=== PATIENT | male | born 1965 | race Caucasian/White ===

== ENCOUNTER 2017-01-06 13:07 | Emergency (ER) | payer SELFPAY ==
--- NOTE | ~2017-01-06 | EKG ---
PATIENT: VIVIANA RAMOS UNIT #: [id number] Ventricular Rate: 81 BPM Atrial Rate: 81 BPM P-R Interval: 156 ms QRS Duration: 82 ms Q-T Interval: 376 ms QTC Calculation(Bezet): 436 ms P [place]: 57 degrees Calculated R [place]: 57 degrees Calculated T [place]: 15 degrees Diagnosis Line: Normal sinus rhythm Diagnosis Line: Normal ECG Diagnosis Line: No previous ECGs available Diagnosis Line: Confirmed by DOE LUU MD ([id number]) on 01/08/2017 Diagnosis Line: 10:53:59 PM INTERPRETING MD: JUS DIAZ
--- NOTE | ~2017-01-06 | CR72 ---
[facility] A Service [facility] RADIOLOGY TEXT RESULTS PATIENT: VIVIANA RAMOS JR LOCATION: [facility] : 61 UNIT #: [id number] AGE: [address]: Brock Alvarez DO SEX: M ORDER DR: [id number] [facility] [address] [place], [place] [address] [id number] E MR#: [id number] Acc #: [id number] NAME: VIVIANA RAMOS JR : 1965 SEX: M STUDY DATE/TIME: 01/06/2017 12:10 UNIT: [facility] ROOM: STUDY DESCRIPTION: CR Chest Single View Portable Attending Physician: Brock Alvarez D.O. Ordering Physician: Brock Alvarez D.O. Primary Care Physician: Maria Alejandra Ramos A.P.R.N. MEDICAL IMAGING REPORT This report is preliminary unless electronic signature is present EXAM Portable AP view of the chest. DATE OF EXAM 01/06/2017 COMPARISON None. INDICATIONS 51-year-old male with fever, dyspnea and chest congestion for 3 days. Hypotension. FINDINGS Cardiomediastinal silhouette is within normal limits for portable technique. No evidence of pneumothorax, pleural effusion or acute airspace disease. IMPRESSION No acute radiographic abnormality. Normal heart size. Dictated by... Jesus Best M.D. THIS IS AN ELECTRONICALLY VERIFIED REPORT Jesus Best M.D. at 01/09/2017 7:33 AM HANNA/irwin TD: 01/06/2017 23:11 JOB #: [id number] MEDICAL IMAGING REPORT [facility] A Service [facility] RADIOLOGY TEXT RESULTS PATIENT: VIVIANA RAMOS JR LOCATION: [facility] : 61 UNIT #: [id number] AGE: [address]: Brock Alvarez DO SEX: M ORDER DR: Page 1 of 1 COPY
[2017-01-06 12:16] LABS: INFLUENZA A NEG (NEG); INFLUENZA B POS (NEG)
[2017-01-06 12:30] LABS: POC - CKMB <1.0 ng/mL (0.0-7.9); POC - TROPONIN <0.05 ng/mL (<=0.05)
[2017-01-06 13:09] LABS: BASOPHIL% 0.3 % (0-2.5); EOSINOPHIL# 0.1 X10e3 (0-0.7); EOSINOPHIL% 1.2 % (0.0-7.0); HEMATOCRIT 45.3 % (38.0-50.0); HEMOGLOBIN 15.2 gm/dL (13.0-16.0); LYMPHOCYTE# 0.4 X10e3 (1.0-3.5); LYMPHOCYTE% 5.6 % (17.0-45.0); MEAN CELL VOLUME 92.1 FL (83-96); MEAN CORPUSCULAR HEMOGLOBIN 30.8 PG (28-34); MEAN CORPUSCULAR HGB CONC 33.5 g/dL (30-36); MONOCYTE# 0.5 X10e3 (0-1.0); MONOCYTE% 6.9 % (3.0-12.0); NEUTROPHIL# 6.5 X10e3 (1.5-7.1); PLATELET COUNT 116 X10e3 (140-420); RED BLOOD COUNT 4.92 X10e (3.90-5.60); RED CELL DISTRIBUTION WIDTH 13.6 % (11.0-15.5); WHITE BLOOD COUNT 7.6 X10e3 (4.0-10.5)
[2017-01-06 13:11] LABS: DIFF IND NO
[2017-01-06 13:39] LABS: ALBUMIN SERUM 4.2 g/dL (3.5-5.0); BILIRUBIN,TOTAL 0.9 mg/dL (0.2-2.0); BUN/CREATININE RATIO 12.72; CALCIUM SERUM 8.4 mg/dL (8.4-10.2); CREATININE SERUM 1.1 mg/dL (0.6-1.4); GLOM FILT RATE Estimated 76.3 mL/min (>60); PROTEIN TOTAL SERUM 6.9 g/dL (6.0-8.3)
[2017-01-06 14:10] LABS: POC - CKMB <1.0 ng/mL (0.0-7.9); POC - TROPONIN <0.05 ng/mL (<=0.05)
[2017-01-06 14:49] LABS: URINE SOURCE CLEAN CATCH
[2017-01-06 15:00] LABS: URINE APPEARANCE CLEAR; URINE BILIRUBIN NEG (NEG); URINE BLOOD NEG (NEG); URINE COLOR DK YELLOW; URINE GLUCOSE NEG (NEG); URINE KETONE NEG (NEG); URINE LEUKOCYTE ESTERASE NEG (NEG); URINE NITRATE NEG (NEG); URINE PH 6.5 (5-8); URINE PROTEIN NEG (NEG); URINE SPECIFIC GRAVITY 1.027 (1.003-1.035)
[2017-01-06 15:06] LABS: CULTURE INDICATED? NO
== END 2017-01-06 17:32 | disposition home or self-care (01) ==
LOC: CED 13:07
PROVIDERS: Emergency Medicine
DX: J10.1 Influenza due to other identified influenza virus with other respiratory manifestations (principal); E86.0 Dehydration; I10 Essential (primary) hypertension; E03.9 Hypothyroidism, unspecified; Z88.0 Allergy status to penicillin; Z79.899 Other long term (current) drug therapy
CPT/HCPCS: 36415; 71010; 80053; 81003; 82553; 83605; 84484; 85025; 87804; 93005; 96360; 99284